=== PATIENT | male | born 1975 | race Caucasian/White ===

== ENCOUNTER → 2025-11-18 | Outpatient (CLI) | payer BC, SELFPAY ==
--- NOTE | 2025-11-18 13:41 | EKG12_ITS ---
Test Reason : PREOP Blood Pressure : */* mmHG Vent. Rate : 74 BPM Atrial Rate : 74 BPM P-R Int : 174 ms QRS Dur : 88 ms QT Int : 386 ms P-R-T Axes : 11 -2 35 degrees QTcB Int : 428 ms Normal sinus rhythm Normal ECG Confirmed by Steve Lorenz ([id number]), commissioning editor FRANCK AMOS ([id number]) on 11/21/2025 6:29:47 AM Referred By: Jesse Lowry Confirmed By: Steve Lorenz
[2025-11-18 14:15] LABS: Hematocrit 41.8 % (40-54); Hemoglobin 13.2 g/dL (13.0-16.5); Immature Granulocytes Count 0.030 X10^3/uL (0.0-0.0); Mean Corp Hgb Conc 31.6 g/dL (32-36); Mean Corpuscular Volume 87.6 fL (80-94); Mean Platelet Vol. 9.9 fl (6.2-12.0); NRBC Flagged by Analyzer 0 % (0-5); Platelet Count 409 K/mm3 (150-450); RBC Distribution Width CV 14.1 % (11.6-14.6); RBC Distribution Width SD 45.1 fl (35.1-43.9); Red Blood Count 4.77 M/mm3 (4.6-6.2); White Blood Count 11.4 K/mm3 (4.4-11.0)
[2025-11-18 14:59] LABS: Anion Gap 11 (7-18); BUN 12 mg/dL (4-19); BUN/Creat Ratio 13.5 RATIO (10-20); Calcium,Total 9.7 mg/dL (7.6-11.0); Carbon Dioxide 24.6 mmol/L (20.0-29.0); Chloride 103 mmol/L (96-106); Glucose 101 mg/dL (70-99); Potassium 4.0 mmol/L (3.5-5.1)
== END | disposition home or self-care (01) ==
LOC: PSN 13:41
PROVIDERS: Referring Provider Student in an Organized Health Care Education/Training Program; Visit Provider Student in an Organized Health Care Education/Training Program
DX: Z01.818 Encounter for other preprocedural examination (principal); Z01.810 Encounter for preprocedural cardiovascular examination
CPT/HCPCS: 36415; 80048; 85025; 93005